=== PATIENT | male | born 1960 | race Caucasian/White ===

== ENCOUNTER 2023-12-19 11:44 | Emergency (ER) | payer BC ==
[~2023-12-19] VITALS: Ht 177.8 cm; Wt 107.2 kg
[2023-12-19] MEDS ORDERED: HYDROcodone/acetaminophen 10/325mg tab PO ONE (12:40)
[2023-12-19 15:25] VITALS: BP 136/71; PULSE 54; RESP 17; TEMP 98.7; O2SAT 95
[2023-12-19] MEDS ORDERED: CEPH-585 PO (15:28)
[2023-12-19] MEDS ORDERED: HYDR-3973 PO ×2 (15:28→16:28)
== END 2023-12-19 15:26 | disposition home or self-care (01) ==
LOC: ER 11:45
DX: S61.211A Laceration without foreign body of left index finger without damage to nail, initial encounter (principal); S61.213A Laceration without foreign body of left middle finger without damage to nail, initial encounter; Z89.022 Acquired absence of left finger(s); X58.XXXA Exposure to other specified factors, initial encounter; Y93.89 Activity, other specified; Y92.89 Other specified places as the place of occurrence of the external cause; Y99.8 Other external cause status
CPT/HCPCS: 29125; 73130; 99283; J7030; A6449